=== PATIENT | male | born 1955 | race Caucasian/White ===

== ENCOUNTER 2024-10-03 15:28 | Emergency (ER) | payer MEDICARE, BC | END 2024-10-03 16:34 | disposition home or self-care (01) | LOC: DL.ED 15:28 | DX: S42.031A Displaced fracture of lateral end of right clavicle, initial encounter for closed fracture (principal); S20.211A Contusion of right front wall of thorax, initial encounter; Z88.0 Allergy status to penicillin; Z88.7 Allergy status to serum and vaccine; Z88.8 Allergy status to other drugs, medicaments and biological substances; W22.8XXA Striking against or struck by other objects, initial encounter | CPT/HCPCS: 71045; 73030-RT; 73110-RT; 99283; 99284 ==